=== PATIENT | male | born 1950 | race Caucasian/White ===

== ENCOUNTER 2017-11-20 07:33 | Day surgery (SDC) | payer OTHER ==
[2017-11-14 15:34] VITALS: BMI 26.6
[2017-11-20] MEDS ORDERED: PROPOFOL 20 ML ONE ×2 (07:36)
[2017-11-20] MEDS ORDERED: LIDOCAINE HCL/PF 2% SDV 5ML VIAL ONE (07:54)
[2017-11-20 09:18] VITALS: TEMP 97.8
[2017-11-20 09:42] VITALS: BP 132/70; PULSE 60
== END 2017-11-20 09:43 | disposition home or self-care (01) ==
LOC: FASU-ENDO 07:33
PROVIDERS: ATTEND Internal Medicine Gastroenterology
PROC: 0D5H8ZZ Destruction of Cecum, Via Natural or Artificial Opening Endoscopic (ICD-10-PCS; 2017-11-20)
PROC: 0D5K8ZZ Destruction of Ascending Colon, Via Natural or Artificial Opening Endoscopic (ICD-10-PCS; principal; 2017-11-20 08:36)
DX: Z12.11 Encounter for screening for malignant neoplasm of colon (principal); K55.20 Angiodysplasia of colon without hemorrhage

== ENCOUNTER 2020-08-22 01:41 | Emergency (ER) | payer OTHER ==
[2020-08-22 01:49] VITALS: BP 176/85; PULSE 45; TEMP 97.8; BMI 25.7
[2020-08-22] MEDS ORDERED: FAMOTIDINE 20 MG TABLET PO ONE (02:11)
[2020-08-22] MEDS ORDERED: FAMOTIDINE 20 MG TABLET ONE (02:12)
== END 2020-08-22 02:23 | disposition home or self-care (01) ==
LOC: FER 01:41
DX: K21.9 Gastro-esophageal reflux disease without esophagitis (principal)
CPT/HCPCS: 93005; 99283-25